=== PATIENT | female | born 1985 | race Caucasian/White ===

== ENCOUNTER 2022-01-31 10:13 | Inpatient (IN) | payer SELFPAY ==
[2022-01-31 10:49] LABS: BHCG - Serum Negative (NEGATIVE); Pregs Control Background? CLEAR/WHITE (CLR/WHITE); Pregs Control Bar Appear? YES (CONTROL BAR)
[2022-01-31 10:54] LABS: Hemoglobin 13.9 g/dL (12.0-16.0); Mean Corpuscular HGB CONC 31.4 g/dL (32.0-36.0); Mean Corpuscular Hemoglobin 29.6 pg (27.0-31.0); Mean Corpuscular Volume 94.3 fL (78.0-98.0); Mean Platelet Volume 6.2 fL (7.4-10.4); Platelet Count 562 thou/uL (130-400); RBC Distribution Width 12.1 % (11.5-14.5); Red Blood Cell (RBC) Count 4.69 mill/uL (4.20-5.40); White Blood Cell (WBC) Count 21.6 thou/uL (4.8-10.8)
[2022-01-31 11:03] LABS: ALT (SGPT) 159 U/L (8-55); AST (SGOT) 139 U/L (5-34); Acetaminophen Less than 10.0 mcg/mL (10.0-30.0); Albumin 4.8 g/dL (3.5-5.0); Alcohol Less than 10 mg/dL (Less than 10); Alkaline Phosphatase 101 U/L (40-110); Anion Gap 26 mmol/L (10-20); BUN (Urea Nitrogen) 21 mg/dL (7.0-18.7); Bilirubin, Total 0.4 mg/dL (0.2-1.2); CK (CPK) 1129 U/L (29-168); Calc. Creatinine Clearance 0 mL/min (70-130); Calcium 9.2 mg/dL (7.8-10.44); Carbon Dioxide 19 mmol/L (22-29); Chloride 96 mmol/L (98-107); Estimated GFR 36; Globulin 3.8 g/dL (2.4-3.5); Glucose 107 mg/dL (70-105); Potassium 4.8 mmol/L (3.5-5.1); Protein, Total 8.6 g/dL (6.0-8.3); Salicylate Less than 8.0 mg/dL (15.0-30.0); Sodium 136 mmol/L (136-145)
[2022-01-31 11:23] LABS: Thyroid Stimulating Hormone 0.7016 uIU/mL (0.35-4.94)
[2022-01-31 11:42] LABS: Band 24 % (5-11); Lymphocytes 4 % (21-51); MDiff Complete? YES; Monocytes 6 % (0-10); Neutrophil 63 % (42-75); Platelet Morphology Comment Appears Increased; Polychromasia SLIGHT = 2-3 cells (100X) (0-2/hpf); Reactive Lymphocytes 3 % (0-10)
[2022-01-31] MEDS ORDERED: risperiDONE 1 MG TAB ONE (11:49)
[2022-01-31] MEDS ORDERED: Lorazepam 1 MG TAB ONE (11:49)
[2022-01-31] MEDS ORDERED: Promethazine HCl 25 MG in Sodium Chloride 0.9% 50 ML IVPB SCH (12:00)
[2022-01-31] MEDS ORDERED: Lithium Carbonate ER 450 mg Tablet PO SCH (12:00)
[2022-01-31 12:14] LABS: Bilirubin Negative (Negative); Blood, Urine 3+ (Negative); Clarity Turbid (Clear); Glucose, Urine (Dipstick) 300 mg/dL (Negative); Ketone, Urine Negative (Negative); Leukocyte 25 Leu/uL (Negative); Nitrite Negative (Negative); Protein, Urine (Dipstick) 70 mg/dL (Neg-Trace); Specific Gravity, Urine 1.017 (1.002-1.036); Urobilinogen Normal mg/dL (Less than 2)
[2022-01-31 12:18] LABS: Amphetamine Not Detected (NotDetected); Barbiturates Screen Not Detected (NotDetected); Benzodiazepine Screen Not Detected (NotDetected); Cocaine Metabolite Screen Not Detected (NotDetected); Methadone Not Detected (NotDetected); Methamphetamine Not Detected (NotDetected); Opiate Screen Detected (NotDetected); Oxycodone Screen Not Detected (NotDetected); Phencyclidine (PCP) Not Detected (NotDetected); THC/Cannabinoid Screen Not Detected (NotDetected); Tricyclic Screen Not Detected (NotDetected)
[2022-01-31 12:27] LABS: Bacteria/HPF 4+ HPF (None Seen)
[2022-01-31 13:37] LABS: SARS-CoV-2 NAA Rapid Test Not Detected (NotDetected)
[2022-01-31] MEDS ORDERED: Acetaminophen 325 MG TAB PO PRN (13:39)
[2022-01-31] MEDS ORDERED: Ondansetron PF 4 MG/2 ML Vial IVP PRN (13:39)
[2022-01-31] MEDS ORDERED: cefTRIAXone\\ROCEPHIN 2 GM VIAL ONE (15:17)
[2022-01-31] MEDS ORDERED: Vancomycin 1 GM in Premix Bag 1 BAG IVPB SCH (16:30)
[2022-01-31 17:40] VITALS: BMI 32.1
[2022-01-31] MEDS: Sodium Chloride 0.9% 1,000 ML IV SCH (18:24)
[2022-01-31] MEDS ORDERED: Lorazepam 2 MG/ML VIAL SLOW IVP PRN (20:47)
[2022-01-31] MEDS: Lorazepam 2 MG/ML VIAL SLOW IVP PRN (21:14)
[2022-01-31] MEDS: Enoxaparin Sodium 40 MG/0.4 ML SYRINGE SC SCH (21:16)
[2022-02-01] MEDS: Sodium Chloride 0.9% 1,000 ML IV SCH ×2 (03:35→13:25)
[2022-02-01 05:43] LABS: #Eosinphils 0.1 thou/uL (0.0-0.7); #Lymphocytes 2.4 thou/uL (1.20-3.40); #Monocytes 1.1 thou/uL (0.11-0.59); %Basophils 0.3 % (0.0-1.0); %Eosinophils 0.5 % (0.0-10.0); %Lymphocytes 20.6 % (21.0-51.0); %Monocytes 9.5 % (0.0-10.0); %Neutrophils 69.1 % (42.0-75.0); Hemoglobin 10.8 g/dL (12.0-16.0); Mean Corpuscular HGB CONC 34.8 g/dL (32.0-36.0); Mean Corpuscular Hemoglobin 31.7 pg (27.0-31.0); Mean Platelet Volume 6.6 fL (7.4-10.4); Platelet Count 318 thou/uL (130-400); RBC Distribution Width 11.7 % (11.5-14.5); Red Blood Cell (RBC) Count 3.41 mill/uL (4.20-5.40); White Blood Cell (WBC) Count 11.6 thou/uL (4.8-10.8)
[2022-02-01 06:11] LABS: Anion Gap 13 mmol/L (10-20); BUN (Urea Nitrogen) 12 mg/dL (7.0-18.7); CK (CPK) 2246 U/L (29-168); Calc. Creatinine Clearance 132 mL/min (70-130); Calcium 7.9 mg/dL (7.8-10.44); Carbon Dioxide 25 mmol/L (22-29); Chloride 101 mmol/L (98-107); Estimated GFR 98; Glucose 98 mg/dL (70-105); Potassium 3.6 mmol/L (3.5-5.1); Sodium 135 mmol/L (136-145)
[2022-02-01] MEDS: cefTRIAXone\\ROCEPHIN 1 GM in Sodium Chloride 0.9% 100 ML IVPB SCH (13:23)
[2022-02-01] MEDS: Ondansetron ODT 4 MG TAB PO PRN (13:25)
[2022-02-01] MEDS: hydrOXYzine Pamoate 25 mg Capsule PO PRN (16:46)
[2022-02-01] MEDS: Bupropion 150 MG SR TAB PO SCH ×2 (20:54→22:44)
[2022-02-01] MEDS: Baclofen 10 MG TAB PO SCH ×2 (20:54→22:45)
[2022-02-01] MEDS: Doxepin HCl 25 MG CAP PO SCH ×2 (20:55→22:44)
[2022-02-01] MEDS: Mirtazapine 15 MG Soltab PO SCH ×2 (20:55→22:44)
[2022-02-01] MEDS: OLANZapine 5 MG TAB PO SCH ×2 (20:55→22:44)
[2022-02-01] MEDS: Lorazepam 2 MG/ML VIAL SLOW IVP PRN (21:08)
[2022-02-01] MEDS: Enoxaparin Sodium 40 MG/0.4 ML SYRINGE SC SCH (22:43)
[2022-02-02] MEDS: Sodium Chloride 0.9% 1,000 ML IV SCH ×5 (00:46→22:54)
[2022-02-02 05:37] LABS: #Eosinphils 0.1 thou/uL (0.0-0.7); #Lymphocytes 2.3 thou/uL (1.20-3.40); #Monocytes 0.9 thou/uL (0.11-0.59); #Neutrophils 4.9 thou/uL (1.40-6.50); %Basophils 0.4 % (0.0-1.0); %Eosinophils 1.5 % (0.0-10.0); %Lymphocytes 27.9 % (21.0-51.0); %Monocytes 10.7 % (0.0-10.0); %Neutrophils 59.5 % (42.0-75.0); Hemoglobin 11.5 g/dL (12.0-16.0); Mean Corpuscular HGB CONC 32.3 g/dL (32.0-36.0); Mean Corpuscular Hemoglobin 29.5 pg (27.0-31.0); Mean Corpuscular Volume 91.4 fL (78.0-98.0); Mean Platelet Volume 6.4 fL (7.4-10.4); Platelet Count 336 thou/uL (130-400); RBC Distribution Width 11.7 % (11.5-14.5); Red Blood Cell (RBC) Count 3.91 mill/uL (4.20-5.40); White Blood Cell (WBC) Count 8.3 thou/uL (4.8-10.8)
[2022-02-02 06:06] LABS: ALT (SGPT) 305 U/L (8-55); AST (SGOT) 143 U/L (5-34); Albumin 3.2 g/dL (3.5-5.0); Alkaline Phosphatase 67 U/L (40-110); Anion Gap 11 mmol/L (10-20); BUN (Urea Nitrogen) 5 mg/dL (7.0-18.7); Bilirubin, Direct 0.2 mg/dL (0.1-0.3); Bilirubin, Total 0.5 mg/dL (0.2-1.2); CK (CPK) 1019 U/L (29-168); Calc. Creatinine Clearance 155 mL/min (70-130); Calcium 7.9 mg/dL (7.8-10.44); Carbon Dioxide 27 mmol/L (22-29); Chloride 104 mmol/L (98-107); Estimated GFR 117; Glucose 95 mg/dL (70-105); Potassium 3.4 mmol/L (3.5-5.1); Protein, Total 5.8 g/dL (6.0-8.3); Sodium 139 mmol/L (136-145)
[2022-02-02] MEDS: Bupropion 150 MG SR TAB PO SCH ×2 (08:43→21:49)
[2022-02-02] MEDS: Loratadine 10 MG TAB PO SCH (08:43)
[2022-02-02] MEDS: cefTRIAXone\\ROCEPHIN 1 GM in Sodium Chloride 0.9% 100 ML IVPB SCH (12:23)
[2022-02-02] MEDS: Doxepin HCl 25 MG CAP PO SCH (21:49)
[2022-02-02] MEDS: Baclofen 10 MG TAB PO SCH (21:49)
[2022-02-02] MEDS: Mirtazapine 15 MG Soltab PO SCH (21:49)
[2022-02-02] MEDS: OLANZapine 5 MG TAB PO SCH (21:49)
[2022-02-02] MEDS: Enoxaparin Sodium 40 MG/0.4 ML SYRINGE SC SCH (21:49)
[2022-02-02] MEDS: Lithium Carbonate ER 450 mg Tablet PO SCH (22:54)
[2022-02-03 04:12] LABS: #Basophils 0.1 thou/uL (0.0-0.2); #Eosinphils 0.1 thou/uL (0.0-0.7); #Lymphocytes 2.2 thou/uL (1.20-3.40); #Monocytes 0.6 thou/uL (0.11-0.59); #Neutrophils 3.4 thou/uL (1.40-6.50); %Basophils 1.4 % (0.0-1.0); %Eosinophils 2.2 % (0.0-10.0); %Lymphocytes 33.9 % (21.0-51.0); %Monocytes 9.6 % (0.0-10.0); Mean Corpuscular HGB CONC 33.5 g/dL (32.0-36.0); Mean Corpuscular Hemoglobin 30.4 pg (27.0-31.0); Mean Corpuscular Volume 90.7 fL (78.0-98.0); Mean Platelet Volume 6.4 fL (7.4-10.4); Platelet Count 374 thou/uL (130-400); RBC Distribution Width 11.7 % (11.5-14.5); Red Blood Cell (RBC) Count 3.63 mill/uL (4.20-5.40); White Blood Cell (WBC) Count 6.5 thou/uL (4.8-10.8)
[2022-02-03 04:47] LABS: Anion Gap 11 mmol/L (10-20); BUN (Urea Nitrogen) Less than 4 mg/dL (7.0-18.7); CK (CPK) 521 U/L (29-168); Calc. Creatinine Clearance 162 mL/min (70-130); Calcium 7.9 mg/dL (7.8-10.44); Carbon Dioxide 26 mmol/L (22-29); Chloride 107 mmol/L (98-107); Estimated GFR 118; Glucose 91 mg/dL (70-105); Potassium 3.3 mmol/L (3.5-5.1); Sodium 141 mmol/L (136-145)
[2022-02-03] MEDS: Sodium Chloride 0.9% 1,000 ML IV SCH ×2 (06:00→12:54)
[2022-02-03] MEDS ORDERED: Potassium Chloride 20 MEQ TAB PO SCH (07:45)
[2022-02-03] MEDS ORDERED: ISOVUE-370 76%-LOCM 1 ML ONE (08:00)
[2022-02-03] MEDS: Loratadine 10 MG TAB PO SCH (10:02)
[2022-02-03] MEDS: Bupropion 150 MG SR TAB PO SCH ×2 (10:02→20:58)
[2022-02-03] MEDS: cefTRIAXone\\ROCEPHIN 1 GM in Sodium Chloride 0.9% 100 ML IVPB SCH (12:55)
[2022-02-03] MEDS: Baclofen 10 MG TAB PO SCH (20:58)
[2022-02-03] MEDS: Doxepin HCl 25 MG CAP PO SCH (20:59)
[2022-02-03] MEDS: Mirtazapine 15 MG Soltab PO SCH (20:59)
[2022-02-03] MEDS: Lithium Carbonate ER 450 mg Tablet PO SCH (21:24)
[2022-02-03] MEDS: Enoxaparin Sodium 40 MG/0.4 ML SYRINGE SC SCH (21:25)
[2022-02-03] MEDS: OLANZapine 5 MG TAB PO SCH (21:25)
[2022-02-04] MEDS: Sodium Chloride 0.9% 1,000 ML IV SCH ×2 (00:05→07:27)
[2022-02-04 04:33] LABS: ALT (SGPT) 154 U/L (8-55); AST (SGOT) 35 U/L (5-34); CK (CPK) 308 U/L (29-168)
[2022-02-04] MEDS ORDERED: Potassium Chloride 20 MEQ TAB PO SCH (07:15)
[2022-02-04] MEDS: Loratadine 10 MG TAB PO SCH (08:04)
[2022-02-04] MEDS: Bupropion 150 MG SR TAB PO SCH ×2 (08:06→20:33)
[2022-02-04] MEDS: Ondansetron ODT 4 MG TAB PO PRN (09:32)
[2022-02-04] MEDS: cefTRIAXone\\ROCEPHIN 1 GM in Sodium Chloride 0.9% 100 ML IVPB SCH (12:15)
[2022-02-04] MEDS: Lithium Carbonate ER 450 mg Tablet PO SCH (20:32)
[2022-02-04] MEDS: OLANZapine 5 MG TAB PO SCH (20:32)
[2022-02-04] MEDS: Doxepin HCl 25 MG CAP PO SCH (20:33)
[2022-02-04] MEDS: Enoxaparin Sodium 40 MG/0.4 ML SYRINGE SC SCH (20:33)
[2022-02-04] MEDS: Baclofen 10 MG TAB PO SCH (20:33)
[2022-02-04] MEDS: Mirtazapine 15 MG Soltab PO SCH (20:34)
[2022-02-05] MEDS: Loratadine 10 MG TAB PO SCH (08:41)
[2022-02-05] MEDS: Bupropion 150 MG SR TAB PO SCH ×2 (08:41→20:45)
[2022-02-05] MEDS: cefTRIAXone\\ROCEPHIN 1 GM in Sodium Chloride 0.9% 100 ML IVPB SCH (11:51)
[2022-02-05] MEDS: Lithium Carbonate ER 450 mg Tablet PO SCH (20:44)
[2022-02-05] MEDS: Doxepin HCl 25 MG CAP PO SCH (20:45)
[2022-02-05] MEDS: Enoxaparin Sodium 40 MG/0.4 ML SYRINGE SC SCH (20:45)
[2022-02-05] MEDS: Baclofen 10 MG TAB PO SCH (20:45)
[2022-02-05] MEDS: OLANZapine 5 MG TAB PO SCH (20:45)
[2022-02-05] MEDS: Mirtazapine 15 MG Soltab PO SCH (20:46)
[2022-02-05] MEDS: hydrOXYzine Pamoate 25 mg Capsule PO PRN (23:38)
[2022-02-06] MEDS ORDERED: Baclofen 10 MG TAB PO SCH (00:51)
[2022-02-06 08:52] VITALS: BP 120/72; TEMP 97.8
[2022-02-06] MEDS: Loratadine 10 MG TAB PO SCH (09:02)
[2022-02-06] MEDS: Bupropion 150 MG SR TAB PO SCH (09:02)
[2022-02-06] MEDS: Ondansetron ODT 4 MG TAB PO PRN (09:10)
== END 2022-02-06 11:00 | disposition short-term general hospital (02) | DRG 917 ==
LOC: ERS 10:13 → NEURO 13:35 → 2NO 02-02 10:37
PROVIDERS: ADMIT Family Medicine; ATTEND Family Medicine
DX: T40.1X1A Poisoning by heroin, accidental (unintentional), initial encounter (principal); A40.1 Sepsis due to streptococcus, group B; N39.0 Urinary tract infection, site not specified; E87.2 Acidosis; N17.9 Acute kidney failure, unspecified; M62.82 Rhabdomyolysis; J90 Pleural effusion, not elsewhere classified; Z20.822 Contact with and (suspected) exposure to COVID-19; R00.1 Bradycardia, unspecified; F31.9 Bipolar disorder, unspecified; F11.10 Opioid abuse, uncomplicated; E87.6 Hypokalemia; Z79.899 Other long term (current) drug therapy
CPT/HCPCS: 36415; 71045; 74170; 76705; 80048; 80053; 80178; 80306; 80307; 81003; 81015; 82550; 83605; 83880; 84443; 84450; 84460; 84703; 85025; 87040; 87077; 87086; 93005; 93306; 94760; 96374; 96375; J0696; J2060; J2550; J3370; J3490; J7050; Q0162; Q0177; Q9966; U0002

== ENCOUNTER 2022-06-07 17:50 | Emergency (ER) | payer SELFPAY ==
[~2022-06-07 17:50] MED LIST: Iopamidol-370 76% 500 ML 1 ML ONE
[2022-06-07 18:35] LABS: #Basophils 0.1 thou/uL (0.0-0.2); #Eosinphils 0.2 thou/uL (0.0-0.7); #Lymphocytes 2.5 thou/uL (1.20-3.40); #Monocytes 0.7 thou/uL (0.11-0.59); #Neutrophils 5.9 thou/uL (1.40-6.50); %Basophils 0.8 % (0.0-1.0); %Eosinophils 1.6 % (0.0-10.0); %Lymphocytes 26.8 % (21.0-51.0); %Monocytes 7.8 % (0.0-10.0); BHCG - Serum Negative (NEGATIVE); Mean Corpuscular HGB CONC 33.5 g/dL (32.0-36.0); Mean Corpuscular Hemoglobin 30.2 pg (27.0-31.0); Mean Corpuscular Volume 90.1 fl (78.0-98.0); Platelet Count 366 thou/uL (130-400); Pregs Control Background? CLEAR/WHITE (CLR/WHITE); Pregs Control Bar Appear? YES (CONTROL BAR); RBC Distribution Width 12.4 % (11.5-14.5); Red Blood Cell (RBC) Count 4.29 mill/uL (4.20-5.40); White Blood Cell (WBC) Count 9.3 thou/uL (4.8-10.8)
[2022-06-07 18:47] LABS: ALT (SGPT) 12 U/L (8-55); AST (SGOT) 9 U/L (5-34); Albumin 4.3 g/dL (3.5-5.0); Alkaline Phosphatase 76 U/L (40-110); Anion Gap 10 mmol/L (10-20); BUN (Urea Nitrogen) 12 mg/dL (7.0-18.7); Bilirubin, Total 0.6 mg/dL (0.2-1.2); Calc. Creatinine Clearance 0 mL/min (70-130); Calcium 9.1 mg/dL (7.8-10.44); Carbon Dioxide 25 mmol/L (22-29); Chloride 106 mmol/L (98-107); Estimated GFR 100; Globulin 3.3 g/dL (2.4-3.5); Glucose 80 mg/dL (70-105); Potassium 3.9 mmol/L (3.5-5.1); Protein, Total 7.6 g/dL (6.0-8.3); Sodium 137 mmol/L (136-145)
[2022-06-07] MEDS ORDERED: Acetaminophen 500 MG TAB ONE (19:34)
[2022-06-07] MEDS ORDERED: Ibuprofen 200 MG TAB ONE (19:34)
== END 2022-06-07 21:52 | disposition home or self-care (01) ==
LOC: ERS 17:50
DX: R10.9 Unspecified abdominal pain (principal); R51.9 Headache, unspecified
CPT/HCPCS: 36415; 74177; 80053; 84703; 85025; Q9967